=== PATIENT | female | born 1945 | race Caucasian/White ===

== ENCOUNTER 2017-06-01 17:10 | Inpatient (IN) | payer OTHER ==
--- NOTE | 2017-06-01 17:25 | EDPHY ---
H & P Time Seen by Provider: 06/01/17 17:25 Constitutional: Initial Vital Signs Temperature (C) 36.5 C 06/01/17 17:30 Heart Rate 97 06/01/17 17:30 Respiratory Rate 18 06/01/17 17:30 Blood Pressure 133/87 H 06/01/17 17:30 O2 Sat (%) 97 06/01/17 17:30 O2 Delivery Mode Room Air Allergies/Adverse Reactions: sulfamethoxazole [From Bactrim] Allergy (Intermediate, Verified 06/01/17 19:06) Hives trimethoprim [From Bactrim] Allergy (Intermediate, Verified 06/01/17 19:06) Hives Home Medications: Medication Instructions Recorded Beclomethasone Dipropionate [Qvar] 1 puffs PO BID 06/01/17 Esomeprazole Magnesium 40 mg PO DAILY 06/01/17 Triamterene/Hydrochlorothiazid 1 tab PO DAILY 06/01/17 [Triamterene-Hctz 75-50 mg Tab] Venlafaxine HCl [Venlafaxine HCl 1 cap PO DAILY 06/01/17 ER] Medical Decision Making - Diagnostics Imaging Results: Imaging Impressions Abdomen Ultrasound 06/01/17 17:31 Impression: 1. Hepatomegaly, with hepatic steatosis and/or hepatitis. 2. Chronic versus acute cholecystitis, with associated wall thickening and intraluminal stones and sludge. 3. Dilated common bile duct; however, no discernible common bile duct stone. Findings discussed with Emergency Department physician, Rene Hughes M.D., on June 01, 2017 at 1820. Imaging: Discussed imaging studies w/ call center trainer Radiologist ED Course/Re-evaluation: CHIEF COMPLAINT: Epigastric/RUQ pain HISTORY OF PRESENT ILLNESS: The patient is a 71 y/o female arriving with her family complaining of epigastric and RUQ pain and dysphagia for the last several weeks and progressively worsening. She has a history of esophageal strictures requiring dilation and a large hiatal hernia that she has been told she needs surgery for. She's had progressive epigastric and RUQ pain for several weeks that has occasionally resolved for a day or two, but became constant in the last 2 days. She describes moderate to severe epigastric tenderness in addition to esophageal pain. Her abdominal pain is associated with nausea and worse with movement, palpation, and belching. This pain does not feel like prior esophageal strictures. She does additionally have dysphagia and odynophagia similar to prior strictures. She has been unable to eat for the last 1-2 days. No history of abdominal surgeries. REVIEW OF SYSTEMS: A 10 point review of systems was performed and is negative with the exception of the elements mentioned in the history of present illness. PHYSICAL EXAM: HR, BP, O2 Sat, RR. Temp noted General Appearance: Alert, well hydrated, appropriate, and non-toxic appearing. Head: Atraumatic without scalp tenderness or obvious injury Eyes: Pupils equal, round, reactive to light and accommodation, EOMI, no trauma , no injection. Nose: Atraumatic, no rhinorrhea, clear. Throat: There is no erythema or exudates, no lesions, normal tonsils, mucus membranes moist. Neck: Supple, nontender, no lymphadenopathy. Respiratory: No retractions, no distress, no wheezes, and no accessory muscle use. Lungs are clear to auscultation bilaterally. Cardiovascular: Regular rate and rhythm, no murmurs, rubs, or gallops. Good capillary refill all extremities. Gastrointestinal: Abdomen is soft, RUQ and epigastric tenderness, non-distended , no masses, no rebound, no guarding, no peritoneal signs. Musculoskeletal: Normal active ROM of all extremities, atraumatic. Neurological: Alert, appropriate, and interactive. The patient has non-focal cranial nerves, motor, sensory, and cerebellar exam. Skin: No rashes, good turgor, no nodules on palpation. Past medical history: Esophageal strictures requiring dilation, hiatal hernia Past surgical history: No abdominal surgeries Family history: Noncontributory Social history: Family at bedside. Visiting from [place]. DIAGNOSTICS/PROCEDURES/CRITICAL CARE TIME: Abdominal US: acute cholecystitis The 12 lead EKG was interpreted by myself. Sinus rhythm rate 93. See hard copy and/or "tracemaster" electronic copy for interpretation. DIFFERENTIAL DIAGNOSIS: The differential diagnosis for the patient's abdominal pain included but was not limited to ovarian cyst, pelvic inflammatory disease, ovarian torsion, urinary tract infection, ectopic , cholecystitis, and appendicitis. MEDICAL DECISION MAKING: This is a 71 y/o female who presents with a several-week history of waxing and waning epigastric and RUQ pain worsening over the last couple days. She now has associated nausea and has been unable to eat. Also has odynophagia and dysphagia similar to prior esophageal strictures. She has moderate RUQ and epigastric tenderness on exam that is concerning for gallbladder etiology. Plan for IV, labs, and abdominal US. Patient declines pain medication. LFTs and lipase are elevated. US shows acute cholecystitis. Plan for admission, surgery consult. 1830: Consulted with Dr. Valenzuela, surgeon, in the ED. He will assess patient in the ED. - Data Points Laboratory Results: Laboratory Results 06/01/17 17:45 06/01/17 17:45 18 06/01/17 17:45 17:45 WBC 12.17 10^3/uL H 10^3/uL (3.80-9.50) RBC 4.90 10^6/uL 10^6/uL (4.18-5.33) Hgb 14.7 g/dL g/dL (12.6-16.3) Hct 43.1 % % (38.0-47.0) MCV 88.0 fL fL (81.5-99.8) MCH 30.0 pg pg (27.9-34.1) MCHC 34.1 g/dL g/dL (32.4-36.7) RDW 12.6 % % (11.5-15.2) Plt Count 311 10^3/uL 10^3/uL (150-400) MPV 9.9 fL fL (8.7-11.7) Neut % (Auto) 78.3 % H % (39.3-74.2) Lymph % (Auto) 10.4 % L % (15.0-45.0) [place] % (Auto) 8.6 % % (4.5-13.0) Eos % (Auto) 1.4 % % (0.6-7.6) Baso % (Auto) 0.4 % % (0.3-1.7) Nucleat RBC Rel Count 0.0 % % (0.0-0.2) Absolute Neuts (auto) 9.52 10^3/uL H 10^3/uL (1.70-6.50) Absolute Lymphs (auto) 1.27 10^3/uL 10^3/uL (1.00-3.00) Absolute Monos (auto) 1.05 10^3/uL H 10^3/uL (0.30-0.80) Absolute Eos (auto) 0.17 10^3/uL 10^3/uL (0.03-0.40) Absolute Basos (auto) 0.05 10^3/uL 10^3/uL (0.02-0.10) Absolute Nucleated RBC 0.00 10^3/uL 10^3/uL (0-0.01) Immature Gran % 0.9 % % (0.0-1.1) Immature Gran # 0.11 10^3/uL H 10^3/uL (0.00-0.10) Sodium 133 mEq/L L mEq/L (135-145) Potassium 4.0 mEq/L mEq/L (3.5-5.2) Chloride 94 mEq/L L mEq/L (97-110) Carbon Dioxide 22 mEq/l mEq/l (22-31) Anion Gap 17 mEq/L H mEq/L (8-16) BUN 15 mg/dL mg/dL (7-23) Creatinine 1.0 mg/dL mg/dL (0.6-1.0) Estimated GFR 55 Glucose 133 mg/dL H mg/dL (70-100) Calcium 9.7 mg/dL mg/dL (8.5-10.4) Total Bilirubin 7.5 mg/dL H mg/dL (0.1-1.4) Conjugated Bilirubin 6.5 mg/dL H mg/dL (0.0-0.5) Unconjugated Bilirubin 1.0 mg/dL mg/dL (0.0-1.1) AST 572 IU/L H IU/L (14-46) ALT 839 IU/L H IU/L (9-52) Alkaline Phosphatase 277 IU/L H IU/L (38-126) Total Protein 7.5 g/dL g/dL (6.3-8.2) Albumin 4.2 g/dL g/dL (3.5-5.0) Lipase 2441 IU/L H IU/L (23-300) Medications Given: Discontinued Medications Sodium Chloride (Ns) 1,000 mls @ 0 mls/hr IV EDNOW ONE; Wide Open PRN Reason: Protocol Stop: 06/01/17 17:32 Last Admin: 06/01/17 17:50 Dose: 1,000 mls Departure - Departure Disposition: [facility] Inpatient Acute Clinical Impression: Acute cholecystitis Condition: Fair Report Scribed for: Rene Hughes Report Scribed by: Yenny Danielson Date of Report: 06/01/17 Time of Report: 18:38
[2017-06-01] MEDS ORDERED: NS 1,000 ML IV ONE (17:31)
--- NOTE | 2017-06-01 17:38 | CPEKG ---
Heart Rate: 93 RR Interval: 645 P-R Interval: 140 QRSD Interval: 78 QT Interval: 364 QTC Interval: 453 P Dresden: 48 QRS Dresden: 42 T Wave Dresden: 14 EKG Severity - NORMAL ECG - EKG Impression: SINUS RHYTHM Electronically Signed By: Rene Hughes 01-Jun-2017 19:58:45
[2017-06-01 18:01] LABS: PLATELET COUNT 311 10^3/uL (150-400)
[2017-06-01] MEDS: HYDROmorphONE/DILAUDID 1 MG/ML INJ IVP PRN ×2 (20:18→22:20)
[2017-06-01] MEDS ORDERED: ONDANSETRON DISINTEGRATING 4 MG TAB PO PRN (21:24)
[2017-06-01] MEDS ORDERED: ONDANSETRON 4 MG/2 ML VIAL IVP PRN (21:24)
[2017-06-01] MEDS ORDERED: NS 1,000 ML IV SCH (21:30)
--- NOTE | 2017-06-01 21:50 | GHP ---
[f rep st] HISTORY AND PHYSICAL DATE OF ADMISSION: 06/01/2017 CHIEF COMPLAINT: Abdominal pain. HISTORY OF PRESENT ILLNESS: A 71-year-old female with a history of esophageal stricture, status post dilation. Presents with 3 weeks of abdominal pain. Described as epigastric in nature. Worse with eating. Associated with a small amount of nausea, vomiting. She did not seek treatment immediately as she attributed this to her hiatal hernia. She is from [place], [place], visiting her daughter. At her daughter's insistence she presented to the emergency department. PAST MEDICAL/PAST SURGICAL HISTORY: 1. Hiatal hernia. 2. GERD. 3. Hypertension. 4. Esophageal stricture. 5. Anxiety. 6. Retinal surgery. 7. Cataract surgery. 8. Carpal tunnel release. MEDICATIONS: Please see medication reconciliation. ALLERGIES: Bactrim. FAMILY HISTORY: Reviewed and noncontributory. SOCIAL HISTORY: She is visiting from [place]. She has not drank for the last 2 weeks; however, salome usually has one alcoholic drink a night. REVIEW OF SYSTEMS: A 10-point review of systems is conducted and is negative except per HPI. PHYSICAL EXAM: VITAL SIGNS: Blood pressure 120/70, heart rate 83, respiration rate 16, saturating a t initially at 89% on room air. Temperature 36.7. GENERAL: Ms. Stroud is a pleasant female who appea rs tired, but in no acute distress. HEENT: Shows her to be normocephalic, atraumatic. CARDIOVASCUL AR: Regular rate and rhythm. No murmurs, rubs, or gallops. PULMONARY: Lungs clear to auscultation bilaterally. ABDOMEN: Soft. She has no rebound or guarding. She has normal bowel sounds. She carmona s epigastric tenderness to palpation. She has no Collins sign. SKIN: Shows no rash. : No Cortes. NEUROLOGIC: Shows her to be alert and oriented x3. She is moving all extremities. PSYCHIATRIC: Exam shows normal mood and affect. LABORATORY DATA: White count is 12.1, sodium is 133, bicarb 22, total bilirubin 7.5, AST is 572. AL T is 839, alkaline phosphatase is 277, lipase is 2441. DATA: 1. I discussed this with Dr. Hughes in the ED. We will admit to med/surg. 2. I reviewed her ultrasound. This shows chronic versus acute cholecystitis, with stones and a dila sunny common bile duct, without clear common bile duct stone seen. 3. ECG, which I personally reviewed and interpreted, shows sinus rhythm. There is nothing acutely i schemic. IMPRESSION AND PLAN: 1. Cholecystitis, possible common bile duct stone, pancreatitis: GI has been consulted, planned ERC P tomorrow. Dr. Brady has been consulted by the ED, but requested that we admit. I think she wi ll need an ERCP with possible stone extraction pending her symptoms, as well as LFTs tomorrow. Will recheck her lipase to see if her pancreatitis resolves. She will likely need a cholecystectomy at so me point, General Surgery will need to be consulted when she is stabilized from her initial procedure s, and resolved her pancreatitis. 2. Gastroesophageal reflux disease: Will continue her esomeprazole. 3. Anxiety: Continue her Effexor. 4. Hypertension: Hold her medications at this time. 5. We will keep her n.p.o., give her IV fluids and IV pain control. /[id number]/MODL
[2017-06-01] MEDS: ERTAPENEM 1 GM VIAL IV SCH (22:18)
[2017-06-02] MEDS: ACETAMINOPHEN 325 MG TAB PO PRN ×2 (05:01→20:58)
[2017-06-02] MEDS: HYDROmorphONE/DILAUDID 1 MG/ML INJ IVP PRN ×3 (05:01→20:59)
[2017-06-02 05:21] LABS: PLATELET COUNT 244 10^3/uL (150-400)
[2017-06-02] MEDS: PANTOPRAZOLE SODIUM 40 MG TAB PO SCH (08:21)
[2017-06-02] MEDS: VENLAFAXINE XR 37.5 MG CAP PO SCH (08:21)
[2017-06-02] MEDS: ERTAPENEM 1 GM VIAL IV SCH (08:21)
[2017-06-02] MEDS ORDERED: GLUCAGON HCL 1 MG VIAL ONE (08:48)
[2017-06-02] MEDS ORDERED: IOTHALAMATE MEG (CONRAY) 50 ML VIAL IV ONE (08:49)
--- NOTE | 2017-06-02 09:12 | GCON ---
[f rep st] CONSULTATION CHIEF COMPLAINT: Cholelithiasis, abnormal liver function tests, possible choledocholithiasis. HISTORY OF PRESENT ILLNESS: I have been asked to see this 71-year-old woman in consultation by Dr. Markie hare for abnormal liver function tests, with gallstones and dilated duct. The patient does have a history of gastroesophageal reflux disease. She reportedly has a prior history of esophageal strictu re, and has undergone upper endoscopy in the past. She does have a hiatal hernia. Over the last 3 w eeks, she has been in intermittent retrosternal discomfort and chest pain. The pain does radiate to her back. Symptoms are worse with eating. She initially attributed this to her hiatal hernia. The pain became worse and she did go to the emergency room for further evaluation. She was found to have a total bilirubin of 7.5 with an ALT of 839 and AST of 572. Alk phos was 277. Her lipase was also elevated at 2441. She had a slightly elevated white count of 12.17. Abdominal ultrasound showed hep atomegaly with steatosis, chronic versus acute cholecystitis, with associated wall thickening and int raluminal stones and sludge. She also had a dilated common bile duct up to 9 mm. Asked to see patie nt for further evaluation. PAST MEDICAL HISTORY: GERD, hypertension, anxiety/depression. PAST SURGICAL HISTORY: Retinal surgery, cataract surgery, carpal tunnel release. ALLERGIES: Bactrim. FAMILY HISTORY: Negative as it pertains to chief complaint. SOCIAL HISTORY: She is from [place], [place]. Only drinks socially, is a nonsmoker. MEDICATIONS: Prior to admission included venlafaxine, which is Effexor, I think, 1 cap daily; Nexium 40 mg daily; triamterene-hydrochlorothiazide 1 tab daily; and Qvar 1 puff b.i.d. REVIEW OF SYSTEMS: Negative for 10 systems other than mentioned in HPI. PHYSICAL EXAM: VITAL SIGNS: 124/74, respiratory rate is 16, heart rate 75, 94% sat on room air, 36. 8 temp. GENERAL: Very pleasant woman in no acute distress. HEENT: Normocephalic, atraumatic. EOM I. NECK: Supple. No cervical adenopathy. No thyromegaly. Mucous membranes moist. LUNGS: Clear. CARDIAC: Normal S1, S2 without murmur. ABDOMEN: Soft, benign. Normal bowel sounds. Slight tend erness to palpation in the epigastrium. EXTREMITIES: Without clubbing, cyanosis, edema. NEUROLOGIC : Grossly nonfocal. SKIN: Warm, dry, intact. PSYCH: Alert and oriented x3 with normal affect. LABORATORY DATA: As above. IMPRESSION: 71-year-old woman with clinical history consistent with cholelithiasis or chronic cholec ystitis and choledocholithiasis. RECOMMENDATIONS: The patient is n.p.o. Patient is planned for cholecystectomy at some point during this admission. We will plan on pre-surgical ERCP for sphincterotomy and stone extraction. We will continue on IV hydration and analgesia. Will follow with you. /[id number]/MODL
[2017-06-02] MEDS ORDERED: LR 1,000 ML IV ONE (09:17)
--- NOTE | 2017-06-02 09:18 | ASMTCMCOM ---
CM Note CM Note Notes: Patient admitted with acute cholecystitis. She is scheduled to have an ERCP today and surgical consult when stable. Patient is in town from [place], visiting her daughter. She is normally independent and lives with her . No therapies have been ordered; I anticipate she will discharge home with her daughter when stable. Case Management will follow. Date Signed: 06/02/2017 09:17 AM Electronically Signed By:Shandra Garvey RN
[2017-06-02] MEDS ORDERED: PROPOFOL 200 MG/20 ML VIAL ONE (09:32)
[2017-06-02] MEDS ORDERED: fentaNYL 100 MCG/2 ML INJ ONE (09:32)
[2017-06-02] MEDS ORDERED: PROMETHAZINE HCL 25 MG/ML INJ IVP PRN (09:59)
[2017-06-02] MEDS ORDERED: fentaNYL 100 MCG/2 ML INJ IVP PRN (09:59)
[2017-06-02] MEDS ORDERED: LR 500 ML IV PRN (09:59)
[2017-06-02] MEDS ORDERED: DEXAMETHASONE 4 MG/ML VIAL IVP PRN (09:59)
[2017-06-02] MEDS ORDERED: ALBUTEROL 3 ML DEYVIAL IH PRN (09:59)
[2017-06-02] MEDS ORDERED: NALOXONE HCL 0.4 MG/ML INJ IVP PRN (09:59)
[2017-06-02] MEDS ORDERED: ONDANSETRON 4 MG/2 ML VIAL IVP PRN (09:59)
--- NOTE | 2017-06-02 09:59 | PDANEPAE ---
ANE Past Medical History - Pulmonary History Hx Oxygen in Use at Home: No Hx Sleep Apnea: No Sleep Apnea Screening Result - Last Documented: Negative - Endocrine History Hx Diabetes: No ANE Review of Systems Review of Systems: ANE Patient History - Allergies Allergies/Adverse Reactions: sulfamethoxazole [From Bactrim] Allergy (Intermediate, Verified 06/01/17 19:06) Hives trimethoprim [From Bactrim] Allergy (Intermediate, Verified 06/01/17 19:06) Hives - Home Medications Home Medications: Beclomethasone Dipropionate [Qvar] 1 puffs PO BID 06/01/17 [Last Taken 05/29/17] Esomeprazole Magnesium 40 mg PO DAILY 06/01/17 [Last Taken 06/01/17] Triamterene/Hydrochlorothiazid [Triamterene-Hctz 75-50 mg Tab] 1 tab PO DAILY [Last Taken 06/01/17] Venlafaxine HCl [Venlafaxine HCl ER] 1 cap PO DAILY 06/01/17 [Last Taken ] - NPO status NPO Since - Liquids (Date): 06/02/17 NPO Since - Liquids (Time): 00:00 NPO Since - Solids (Date): 06/02/17 NPO Since - Solids (Time): 00:00 - Smoking Hx Smoking Status: Former smoker ANE Labs/Vital Signs - Labs Result Diagrams: 06/02/17 04:36 06/02/17 04:36 - Vital Signs Blood Pressure: 130/71 Heart Rate: 73 Respiratory Rate: 16 O2 Sat (%): 93 Height: 154 cm Weight: 75.6 kg ANE Physical Exam - Airway Neck exam: FROM Mallampati Score: Class 1 Mouth exam: normal dental/mouth exam - Pulmonary Pulmonary: no respiratory distress, no rales or rhonchi, clear to auscultation - Cardiovascular Cardiovascular: regular rate and rhythym, no murmur, rub, or gallop - ASA Status ASA Status: III ANE Anesthesia Plan Anesthesia Plan: general endotracheal anesthesia
--- NOTE | 2017-06-02 10:01 | PDMN ---
Medical Necessity Medical necessity: M565 gallbladder or bile duct inflammation or stone A-2 days : evidence of common bile duct disease , elevated bili , > 2 mg/ml, elevated liver function tests AST,ALT > 1.5 upper limit, further eval and monitoring and tx needed . pt is NPO with IV fluids, antiemetics, pain meds, abx,
[2017-06-02] MEDS ORDERED: SUGAMMADEX SODIUM 200 MG/2 ML VIAL IVP ONE (10:03)
[2017-06-02] MEDS ORDERED: ROCURONIUM 50 MG/5 ML VIAL ONE (10:03)
[2017-06-02] MEDS ORDERED: ONDANSETRON 4 MG/2 ML VIAL ONE (10:03)
[2017-06-02] MEDS ORDERED: LIDOCAINE 2% 5 ML SDV ONE (10:03)
--- NOTE | 2017-06-02 10:25 | GIREPORT ---
[facility] Surgical Services - Endoscopy Department Patient Name: Tabatha Stroud Procedure Date: 06/02/2017 9:38 AM Patient Type: Inpatient Attending MD/ ER Physician: Brady Rdz MD Procedure: ERCP Indications: Evaluation and possible treatment of bile duct stone(s), Suspected bile duct stone(s), Abnormal liver function test, Abdominal pain of suspected aidee iary origin Providers: Brady Rdz MD Medicines: See the Anesthesia note for documentation of the administered medicatio ns Complications: No immediate complications. Description of Procedure: After obtaining informed consent, the scope was passed under direct vis ion. Throughout the procedure, the patient's blood pressure, pulse, and oxyg en saturations were monitored continuously. The was introduced through the mouth, and advanced to the duodenum and used to inject contrast into th e bile duct. The ERCP was accomplished without difficulty. The patient tolerated the procedure well. Findings: The esophagus was successfully intubated under direct vision. The scope was advanced to a normal major papilla in the descending duodenum without detailed examination of the pharynx, larynx and associated structures, and upper GI tract. The upper GI tract was grossly normal. A long 0.035 inc h Soft Jagwire was passed into the biliary tree. The bile duct was then d eeply cannulated over the guidewire. Contrast was injected. I personally interpreted the bile duct images. Contrast extended to the bifurcation. The entire opacified area was normal. No obvious filling defects. An 8 - 10 mm biliary sphincterotomy was made with a traction (standard) sphincteroto me using ERBE electrocautery. There was no post-sphincterotomy bleeding. T o size the object(s), the biliary tree was swept with a 12 mm balloon sta rting at the bifurcation. Nothing was found. Good bile flow. Estimated Blood Loss: Estimated blood loss: none. Post Op Diagnosis: - A biliary sphincterotomy was performed. - The biliary tree was swept and nothing was found. Recommendation: - Clear liquid diet. - Refer to a surgeon for cholecystecgtomy. - Thank you for allowing me to participate in the care of your patient. Attending Participation: I personally performed the entire procedure. Brady Rdz MD Brady Rdz MD 06/02/2017 10:24:35 AM This report has been signed electronicallyStevdayana Rdz MD Number of Addenda: 0 Note Initiated On: 06/02/2017 9:38 AM [email or web address]
[2017-06-02] MEDS: BECLOMETHASONE QVAR 40 MDI IH SCH ×2 (10:34→20:29)
--- NOTE | 2017-06-02 10:37 | POSTANESTH ---
Post Anesthetic Evaluation Cardiovascular Status: Normal, Stable, Similar to Pre-Op Cond Respiratory Status: Normal, Stable, Similar to Pre-op Cond. Level of Consciousness/Mental Status: Mildly Sleepy, Arousable Pain Control: Adequate, Prn Tx Ordered Nausea/Vomiting Control: Adequate, Prn Tx Ordered Complications Possibly Related to Anesthesia: None Noted
[2017-06-02] MEDS: D5W 1/2 NS W/ 20 KCl/L 1,000 ML IV SCH (14:18)
--- NOTE | 2017-06-02 15:19 | HOSPPROG ---
Hospitalist Progress Note Assessment/Plan: * acute cholecystitis * Surgery will see today * May need to rest 1 more day before surgery * Continue antibiotics for now * biliary obstruction * Status post ERCP * Monitor LFTs * pancreatitis * Bowel rest for now * history esophageal stricture * GERD Subjective: Complaining of little bit of epigastric and esophageal pain. Objective: Vital Signs Temp Pulse Resp BP Pulse Ox 36.8 C 75 18 126/64 H 94 06/02/17 13:40 06/02/17 13:40 06/02/17 13:40 06/02/17 13:40 06/02/17 13:40 Laboratory Results 06/02/17 04:36 06/02/17 04:36 06/01/17 06/02/17 06/03/17 05:59 05:59 05:59 Intake Total 1700 865 Output Total 0 Balance 1700 865 Discussed with surgery - Physical Exam Constitutional: no apparent distress, appears nourished, not in pain Eyes: anicteric sclera, EOMI Ears, Nose, Mouth, Throat: moist mucous membranes, hearing normal Cardiovascular: regular rate and rhythym Respiratory: no respiratory distress Gastrointestinal: normoactive bowel sounds, tenderness (Mild epigastric and right upper quadrant tenderness) Skin: warm Neurologic: AAOx3 Psychiatric: interacting appropriately, not anxious, not encephalopathic, thought process linear ICD10 Worksheet Patient Problems: Problems Problem Status Onset Acute cholecystitis Acute
--- NOTE | 2017-06-02 22:30 | PDCONSULT ---
Plastic Surgery Manager Note: Tabatha is a 71 y/o female admitted yesterday with a 3 weeks history of worsening abdominal pain, nausea and emesis. She was found to have pancreatitis and gallstones and was admitted to the Hospitalist service with GI consulting. She underwent ERCP/sphincterotomy this morning by Dr. Rdz with findings of a mildly dialated CBD, but no retained stones. Dr. Gilman requested surgical consult. PMH: hiatal hernia/esophageal stricture/GERD/HTN/anxiety surgery: cataracts, carpal tunnel all: Bactrim reports drinking alcohol daily 1-2 drinks/none past 2 weeks she is a non-smoker meds: Ertapenam/Effexor/hydromorphone SH: lives in [place]/here visiting her daughter ROS: denies prior attacks, jaundice, hemetemesis, melena, hematochezia PE: T 37.0 P 78 BP 110/80 O2sat 96% 1.5 lpm O2 pleasant woman in NAD mild scleral icterus/no adenopathy lungs: clear to auscultation CVS: RRR abd: soft/no RUQ tenderness/mild midepigastric tenderness to deep palpation no hepatosplenomegaly or mass labs: lipase 1750 bili 6.3 (5.7 conj) AST 301 ALT 621 alk Phos 227 wbc 10.1 Hgb 13.4 plat 244 LORETA: multiple gallstones with 6 mm wall thickening/CBD 9 mm/hepatic steatosis Imp:1. pancreatitis most likely etiology would be cholelithiasis/though other causes or contributing factors not excluded 2. gallstones with chronic cholecystitis Rec: we discussed the pathophysiology of pancreatitis and the hepatobiliary anatomy and physiology in detail with the aide of anatomic drawings. I recommended lap cholecystectomy during this hospitalization after her pancreatitis resolves further. I have ordered a lipase in the AM along with repeat LFT's. If she shows evidence of worsening pancreatitis I would consider a CT of the pancreas to further assess. I would continue NPO with IV fluids until pancreatitis improves.
[2017-06-03] MEDS: D5W 1/2 NS W/ 20 KCl/L 1,000 ML IV SCH ×2 (05:16→22:16)
[2017-06-03 05:30] LABS: PLATELET COUNT 222 10^3/uL (150-400)
[2017-06-03] MEDS: BECLOMETHASONE QVAR 40 MDI IH SCH ×2 (08:20→20:43)
[2017-06-03] MEDS: ERTAPENEM 1 GM VIAL IV SCH (09:27)
[2017-06-03] MEDS: PANTOPRAZOLE SODIUM 40 MG TAB PO SCH (09:28)
[2017-06-03] MEDS: VENLAFAXINE XR 37.5 MG CAP PO SCH (09:29)
--- NOTE | 2017-06-03 09:59 | HOSPPROG ---
Hospitalist Progress Note Assessment/Plan: * acute cholecystitis * Surgery today * Continue antibiotics for now * biliary obstruction * Status post ERCP * Improving LFTs * pancreatitis * Bowel rest for now * Improving * history esophageal stricture * GERD Subjective: Pain seems to be better Objective: Vital Signs Temp Pulse Resp BP Pulse Ox 36.9 C 74 18 132/64 H 94 06/03/17 08:04 06/03/17 08:20 06/03/17 08:20 06/03/17 08:04 06/03/17 08:20 Laboratory Results 06/03/17 04:39 06/03/17 04:39 06/02/17 06/03/17 06/04/17 05:59 05:59 05:59 Intake Total 1700 1866 Output Total 0 Balance 1700 1866 - Physical Exam Constitutional: no apparent distress, appears nourished, not in pain Eyes: anicteric sclera, EOMI Ears, Nose, Mouth, Throat: moist mucous membranes, hearing normal Cardiovascular: regular rate and rhythym, no murmur, rub, or gallop Respiratory: no respiratory distress, no rales or rhonchi, clear to auscultation Gastrointestinal: normoactive bowel sounds, soft, non-tender abdomen, tenderness (Mild epigastric) Skin: warm Neurologic: AAOx3 Psychiatric: interacting appropriately, not anxious, not encephalopathic, thought process linear ICD10 Worksheet Patient Problems: Problems Problem Status Onset Acute cholecystitis Acute
--- NOTE | 2017-06-03 10:46 | SOAPPROG ---
LUCIUS Progress Note Assessment/Plan: Assessment/Plan - 71-year-old female with gallstone pancreatitis status post ERCP Pain appears better today, lipase downtrending in is almost normal. Plan for lap chris today, risks benefits and alternatives discussed. Subjective: Feels better, still has some epigastric tenderness Objective: Vital Signs Temp Pulse Resp BP Pulse Ox 36.9 C 74 18 132/64 H 94 06/03/17 08:04 06/03/17 08:20 06/03/17 08:20 06/03/17 08:04 06/03/17 08:20 Laboratory Results 06/03/17 04:39 06/03/17 04:39 06/02/17 06/03/17 06/04/17 05:59 05:59 05:59 Intake Total 1700 1866 Output Total 0 Balance 1700 1866 ICD10 Worksheet Patient Problems: Problems Problem Status Onset Acute cholecystitis Acute
--- NOTE | 2017-06-03 12:31 | SOAPPROG ---
SOAP Progress Note Assessment/Plan: Assessment: s/ ERCP with sphincterotomy. No stones in CBD LFT's improved. No abdominal pain. Plan: Plan for Cholecystectomy later today. Will sign off, please call with further questions. 06/03/17 12:23 Subjective: CC: Cholelithiasis and abnormal LFTs Patient without abdominal pain Objective: Vital Signs Temp Pulse Resp BP Pulse Ox 36.9 C 74 18 132/64 H 94 06/03/17 08:04 06/03/17 08:20 06/03/17 08:20 06/03/17 08:04 06/03/17 08:20 Laboratory Results 06/03/17 04:39 06/03/17 04:39 06/02/17 06/03/17 06/04/17 05:59 05:59 05:59 Intake Total 1700 1866 Output Total 0 Balance 1700 1866 Generic Name Dose Route Start Last Admin Trade Name Freq PRN Reason Stop Dose Admin Acetaminophen 650 mg 06/01/17 21:24 06/02/17 20:58 Tylenol PO 11/28/17 21:23 650 mg Q4HRS PRN Administration Pain, Mild/Fever, Can Take PO Beclomethasone Dipropionate 1 puffs 06/02/17 09:00 06/03/17 08:20 Qvar 40 IH 11/29/17 08:59 Not Given BID FERNANDEZ Ertapenem 1 gm 06/01/17 21:30 06/03/17 09:27 Invanz IV 07/01/17 21:29 1 gm DAILY FERNANDEZ Administration Protocol Hydromorphone HCl 0.4 - 0.6 mg 06/01/17 20:10 06/02/17 20:59 Dilaudid IVP 06/11/17 20:09 0.6 mg Q2HRS PRN Administration Pain, Severe Unable to Take PO Potassium Chloride/Dextrose/Sod Cl 1,000 mls @ 75 mls/hr 06/02/17 14:00 06/03 05:16 D5w 1/2 Ns W/ 20 Kcl/L IV 11/29/17 13:59 1,000 mls CONT FERNANDEZ Administration Ondansetron HCl 4 mg 06/01/17 21:24 06/01/17 22:19 Zofran IVP 11/28/17 21:23 4 mg Q4HRS PRN Administration Nausea/Vomiting, Can't Take PO Ondansetron HCl 4 mg 06/01/17 21:24 Zofran Odt PO 11/28/17 21:23 Q4HRS PRN Nausea/Vomiting, Use 1st Pantoprazole Sodium 40 mg 06/02/17 09:00 06/03/17 09:28 Protonix PO 11/29/17 08:59 40 mg DAILY FERNANDEZ Administration Venlafaxine HCl 37.5 mg 06/02/17 09:00 06/03/17 09:29 Effexor Xr PO 11/29/17 08:59 Not Given DAILY FERNANDEZ Discontinued Medications Generic Name Dose Route Start Last Admin Trade Name Freq PRN Reason Stop Dose Admin Albuterol 3 ml 06/02/17 09:59 Proventil Neb IH 06/02/17 10:59 Q10M PRN PACU, Wheezing Dexamethasone 4 mg 06/02/17 09:59 Decadron Injection IVP 06/02/17 10:59 ONCE PRN PACU, Nausea/Vomiting Fentanyl Confirm 06/02/17 09:32 Sublimaze Administered 06/02/17 09:33 Dose 100 mcg .ROUTE .STK-MED ONE Fentanyl 25 - 100 mcg 06/02/17 09:59 Sublimaze IVP 06/02/17 10:59 Q5M PRN PACU, IMMEDIATE Pain control Glucagon Confirm 06/02/17 08:48 Glucagon Administered 06/02/17 08:49 Dose 1 mg .ROUTE .STK-MED ONE Sodium Chloride 1,000 mls @ 0 mls/hr 06/01/17 17:31 06/01/17 17:50 Ns IV 06/01/17 17:32 1,000 mls EDNOW ONE Administration Protocol Wide Open Sodium Chloride 1,000 mls @ 75 mls/hr 06/01/17 21:30 06/01/17 22:13 Ns IV 11/28/17 21:29 1,000 mls CONT FERNANDEZ Administration Lactated Ringer's 1,000 mls @ 0 mls/hr 06/02/17 09:17 06/02/17 09:20 Lr IV 06/02/17 09:18 1,000 mls ONCE ONE Administration Per Protocol Lactated Ringer's 500 mls @ 0 mls/hr 06/02/17 09:59 Lr IV 06/02/17 10:59 PRN PRN PACU, Nausea/Vomiting Post-Op Wide Open Iothalamate Meglumine Confirm 06/02/17 08:49 [place]ray Administered 06/02/17 08:50 Dose 50 ml IV .STK-MED ONE Lidocaine HCl Confirm 06/02/17 10:03 Xylocaine-Mpf 2% Vial Administered 06/02/17 10:04 Dose 5 ml .ROUTE .STK-MED ONE Morphine Sulfate 1 - 4 mg 06/02/17 09:59 Morphine IVP 06/02/17 10:59 Q10M PRN PACU, PAIN Naloxone HCl 0.1 mg 06/02/17 09:59 Narcan IVP 06/02/17 10:59 Q2M PRN PACU Resp Rate <10/min Ondansetron HCl 2 - 4 mg 06/02/17 09:59 Zofran IVP 06/02/17 10:59 Q10M PRN PACU, Nausea/Vomiting Ondansetron HCl Confirm 06/02/17 10:03 Zofran Administered 06/02/17 10:04 Dose 4 mg .ROUTE .STK-MED ONE Promethazine HCl 6.25 - 12.5 mg 06/02/17 09:59 Phenergan IVP 06/02/17 10:59 Q5M PRN PACUNausea/Vomiting, Unable PO Propofol Confirm 06/02/17 09:32 Diprivan Administered 06/02/17 09:33 Dose 200 mg .ROUTE .STK-MED ONE Rocuronium [place] Confirm 06/02/17 10:03 Zemuron Administered 06/02/17 10:04 Dose 50 mg .ROUTE .STK-MED ONE Sugammadex Sodium Confirm 06/02/17 10:03 Bridion Administered 06/02/17 10:04 Dose 200 mg IVP .STK-MED ONE Physical Exam - Physical Exam General Appearance: alert, no apparent distress, mild distress Respiratory: chest non-tender, lungs clear, normal breath sounds Abdomen: normal bowel sounds, non-tender, soft Skin: normal color Neuro/Psych: alert, normal mood/affect, oriented x 3 ICD10 Worksheet Patient Problems: Problems Problem Status Onset Acute cholecystitis Acute
[2017-06-03] MEDS: ACETAMINOPHEN 325 MG TAB PO PRN (12:33)
[2017-06-03] MEDS ORDERED: ceFAZolin 2 GM/SWFI 2 GM/20 ML SYR IVP ONE (16:36)
[2017-06-03] MEDS ORDERED: LR 1,000 ML IV ONE (18:10)
--- NOTE | 2017-06-03 18:27 | PDHPUP ---
History & Physical Update H&P update statement: This history and physical update is based on an assessment of the patient which was completed after admission or registration (within 24 hours), but prior to the surgery/procedure. H&P update: H&P reviewed & patient examined, no change in patient's condition since H&P completed
--- NOTE | 2017-06-03 18:47 | PDANEPAE ---
ANE History of Present Illness 71 yo for lap chris ANAYA Past Medical History - Pulmonary History Hx Oxygen in Use at Home: No Hx Sleep Apnea: No Sleep Apnea Screening Result - Last Documented: Negative - Endocrine History Hx Diabetes: No ANE Review of Systems Review of Systems: - Exercise capacity METS (RN): 4 METS ANE Patient History - Allergies Allergies/Adverse Reactions: sulfamethoxazole [From Bactrim] Allergy (Intermediate, Verified 06/01/17 19:06) Hives trimethoprim [From Bactrim] Allergy (Intermediate, Verified 06/01/17 19:06) Hives - Home Medications Home Medications: Beclomethasone Dipropionate [Qvar] 1 puffs PO BID 06/01/17 [Last Taken 05/29/17] Esomeprazole Magnesium 40 mg PO DAILY 06/01/17 [Last Taken 06/01/17] Triamterene/Hydrochlorothiazid [Triamterene-Hctz 75-50 mg Tab] 1 tab PO DAILY [Last Taken 06/01/17] Venlafaxine HCl [Venlafaxine HCl ER] 1 cap PO DAILY 06/01/17 [Last Taken ] - NPO status NPO Status: no food or drink >8 hours NPO Since - Liquids (Date): 06/01/17 NPO Since - Liquids (Time): 00:00 NPO Since - Solids (Date): 06/01/17 NPO Since - Solids (Time): 00:00 - Smoking Hx Smoking Status: Former smoker ANE Labs/Vital Signs - Labs Result Diagrams: 06/03/17 04:39 06/03/17 04:39 - Vital Signs Blood Pressure: 146/69 Heart Rate: 75 Respiratory Rate: 18 O2 Sat (%): 95 Height: 5 ft 0.63 in Weight: 75.6 kg ANE Physical Exam - Airway Neck exam: FROM Mallampati Score: Class 2 Mouth exam: normal dental/mouth exam - Pulmonary Pulmonary: no respiratory distress - Cardiovascular Cardiovascular: regular rate and rhythym - ASA Status ASA Status: II ANE Anesthesia Plan Anesthesia Plan: general endotracheal anesthesia
[2017-06-03] MEDS ORDERED: fentaNYL 100 MCG/2 ML INJ ONE ×3 (19:05→20:41)
[2017-06-03] MEDS ORDERED: PROPOFOL/EMULSION 500 MG/50 ML BOTTLE IV ONE (19:05)
[2017-06-03] MEDS ORDERED: METOCLOPRAMIDE 10 MG/2 ML VIAL ONE (19:07)
[2017-06-03] MEDS ORDERED: DEXAMETHASONE 4 MG/ML VIAL ONE (19:07)
[2017-06-03] MEDS ORDERED: ROCURONIUM 50 MG/5 ML VIAL ONE ×2 (19:07→21:22)
[2017-06-03] MEDS ORDERED: ONDANSETRON 4 MG/2 ML VIAL ONE (19:07)
[2017-06-03] MEDS ORDERED: BUPIVACAINE 0.25% 30 ML SDV ONE (19:17)
[2017-06-03] MEDS ORDERED: KETOROLAC 30 MG/1 ML SDV ONE (20:15)
[2017-06-03] MEDS ORDERED: ONDANSETRON 4 MG/2 ML VIAL IVP PRN (20:29)
[2017-06-03] MEDS ORDERED: fentaNYL 100 MCG/2 ML INJ IVP PRN (20:29)
[2017-06-03] MEDS ORDERED: NALOXONE HCL 0.4 MG/ML INJ IVP PRN (20:29)
[2017-06-03] MEDS ORDERED: HYDROmorphONE/DILAUDID 1 MG/ML INJ IVP PRN (20:29)
--- NOTE | 2017-06-03 21:10 | POSTANESTH ---
Post Anesthetic Evaluation Cardiovascular Status: Tx Over/Under Hydration Respiratory Status: Tx Decrease in SpO2 Level of Consciousness/Mental Status: Mildly Sleepy, Arousable Pain Control: Adequate, Prn Tx Ordered Nausea/Vomiting Control: Adequate, Prn Tx Ordered Complications Possibly Related to Anesthesia: None Noted
--- NOTE | 2017-06-03 21:45 | GOP ---
[f rep st] OPERATIVE REPORT DATE OF OPERATION: 06/03/2017 SURGEON: Livan Valero MD PREVOCATIONAL/REHABILITATION COUNSELOR: None. ANESTHESIA: General endotracheal. ANESTHESIOLOGIST: Moose Tran MD. PREOPERATIVE DIAGNOSIS: Gallstone pancreatitis. POSTOPERATIVE DIAGNOSIS: [id number] cholecystitis with gallstone pancreatitis. PROCEDURE PERFORMED: Laparoscopic cholecystectomy. FINDINGS: Very edematous inflamed, thick gallbladder wall. Cholecystectomy performed via a dome down approach. Cystic artery successfully ligated with hemoclips and Harmonic Scalpel. The junction of cystic duct and infundibulum successfully stapled. SPECIMENS: Gallbladder. ESTIMATED BLOOD LOSS: 100 cc. DESCRIPTION OF PROCEDURE: The patient was greeted in the preoperative suite. Once again, risks, benefits, and alternatives were discussed. Consent was signed. She was then brought back to the operative suite, placed on the OR table in supine position. After all anesthesia machines, including SCDs were on and functioning, World Health [employer] time-out was performed. After successful induction of general anesthesia, the patient's abdomen was prepped and draped in typical sterile fashion. She did receive antibiotics button facing machine operator to the operating room. After successful induction, her abdomen was prepped and draped in typical sterile fashion. I entered the abdomen via an infraumbilical cutdown through which the Veress needle was passed. I achieved pneumoperitoneum uneventfully. Through this, a 12 mm Visiport was passed. I inspected the viscera, found no other suspicious findings. Three additional trocars were placed. One subxiphoid, 2 in the right upper quadrant all under direct visualization. There was a dense layer of omentum to the wall of the gallbladder which were successfully taken down bluntly. The gallbladder was then retracted over the ledge of the liver. I commenced my dissection at the infundibulum of the gallbladder. But given its very edematous and bleeding nature, I turned my approach to a dome down approach. I successfully mobilized the gallbladder off the liver bed using the Harmonic Scalpel. Once I got down to the infundibulum I successfully identified the cystic artery and isolated it , ligated it distally with the Harmonic scalpel and proximally with a hemoclip. I then skeletonized the infundibulum and junction of the cystic duct. It was enlarged and full of stones. I was unable to successfully get a hemoclip around this. I chose to staple it off using a single fire of the Endo-SONJA blue load. I successfully ligated and amputated the gallbladder at the infundibulum cystic duct junction. It was then removed using an EndoCatch bag. Back-table examination of the gallbladder showed amputation at the level of the cystic duct and no other significant pathology. I irrigated the right upper quadrant and liver bed with 2 L sterile saline noting clear effluent in the suction canister. Hemostasis was noted to be good in the liver bed. I did use Janel as a secondary hemostatic agent. I then removed my ports and evacuated pneumoperitoneum. I closed both my subxiphoid and infraumbilical port sites using running Vicryl stitches noting excellent fascial reapproximation. Skin was closed with Monocryl over which Dermabond was placed. The patient was then extubated in the operative suite and taken to the PACU in satisfactory condition. DRAINS: None. COUNTS: All counts were reported as correct x2. /[id number]/MODL MTDD
[2017-06-03] MEDS: HYDROmorphONE/DILAUDID 1 MG/ML INJ IVP PRN (22:17)
--- NOTE | 2017-06-03 22:19 | POSTOPPROG ---
Post Op Note Date of Operation: 06/03/17 Surgeon: Livan Valero Anesthesiologist: Wil Anesthesia: GET(General Endotracheal) Pre-op Diagnosis: Gallstone pancreatitis Post-op Diagnosis: acute on chronic cholecystitis with gallstone pancreatitis Procedure: lap chris Findings: edematous wall, many stones, critical view Inf/Abcess present in the surg proc area at time of surgery?: No EBL: 50-100 Total fluids administered: 2000cc washout Specimen(s): GB
[2017-06-04] MEDS: HYDROmorphONE/DILAUDID 1 MG/ML INJ IVP PRN ×2 (04:37→09:19)
[2017-06-04] MEDS: BECLOMETHASONE QVAR 40 MDI IH SCH (09:02)
[2017-06-04] MEDS: VENLAFAXINE XR 37.5 MG CAP PO SCH (09:55)
[2017-06-04] MEDS: PANTOPRAZOLE SODIUM 40 MG TAB PO SCH (09:55)
[2017-06-04] MEDS ORDERED: HYDROCODONE/APAP 5/325 TAB PO PRN (10:05)
[2017-06-04] MEDS: ERTAPENEM 1 GM VIAL IV SCH (10:11)
--- NOTE | 2017-06-04 11:17 | PDHOMEO2F ---
Home Oxygen Face to Face Home Orders: I certify that a physician or a nurse practitioner or physician's talent assistant has had a [id number] encounter with this patient on the date of this order due to the diagnosis listed, which relates to the primary reason the patient requires home oxygen. Alternative treatments have been tried, or considered, and deemed ineffective. It is anticipated that supplemental oxygen will result in improvement with treatment. Home oxygen qualifying diagnosis: atelectasis, post op SpO2 on room air (%): 87 Frequency of home oxygen needed: continuous Home oxygen liters per minute: 2 Home oxygen delivery device: nasal cannula Concentrator: Yes E-tanks for mobility and back up: Yes If ordering portable O2, is the patient mobile in the home?: Yes I certify that, based on these findings, the home oxygen is medically necessary for this patient for the following length of time. Length of time home oxygen needed: 1 month
[2017-06-04 11:45] VITALS: BP 125/62; PULSE 80; RESP 16; TEMP 98.4; O2SAT 95
--- NOTE | 2017-06-04 13:01 | SOAPPROG ---
SOAP Progress Note Assessment/Plan: Assessment/Plan - s/p lap chris - doing well today, pain is as expected. - discussed lifting, bathing, eating precautions - patient wants to go back to [place] next week. OK by me. Needs to follow up with PCP following week 06/04/17 12:59 Subjective: having some pain but tolerating a diet. Objective: Vital Signs Temp Pulse Resp BP Pulse Ox 36.9 C 80 16 125/62 H 95 06/04/17 11:45 06/04/17 11:45 06/04/17 11:45 06/04/17 11:45 06/04/17 11:45 Laboratory Results 06/03/17 04:39 06/03/17 04:39 06/03/17 06/04/17 06/05/17 05:59 05:59 05:59 Intake Total 1866 3342 Output Total 0 100 Balance 1866 3242 ICD10 Worksheet Patient Problems: Problems Problem Status Onset Acute cholecystitis Acute
[2017-06-04] MEDS: ACETAMINOPHEN 325 MG TAB PO PRN (13:41)
--- NOTE | 2017-06-04 13:58 | GDS ---
[f rep st] DISCHARGE SUMMARY DISCHARGE DIAGNOSES: 1. Acute cholecystitis. 2. Gallstone pancreatitis. 3. Transient choledocholithiasis. 4. Elevated liver function tests due to biliary obstruction. HISTORY: This is a 71-year-old female, who presented with abdominal pain. HOSPITAL COURSE: The patient was noted to have acute cholecystitis, dilated common bile duct without a clear stone, elevated liver function tests. She underwent ERCP the following day with clear ducts , although there was no stone found. Because of her acute pancreatitis, we did wait another day prio r to cholecystectomy. She underwent laparoscopic cholecystectomy without incident. She is eating cu rrently without any worsening epigastric pain and will be discharged home. DISPOSITION: Home. DISCHARGE MEDICATIONS: She will continue home medications. In addition, she will be given Vicodin. FOLLOWUP INSTRUCTIONS: She was instructed to follow up with primary care when she gets back to [facility]. TIME SPENT: Greater than 30 minutes was spent on discharge. /[id number]/MODL
== END 2017-06-04 14:04 | disposition home or self-care (01) | DRG 417 ==
LOC: OBSVTOIN 18:35 → F1N 19:52
PROVIDERS: ADMIT Student in an Organized Health Care Education/Training Program; ATTEND Student in an Organized Health Care Education/Training Program
PROC: BF141ZZ Fluoroscopy of Gallbladder, Bile Ducts and Pancreatic Ducts using Low Osmolar Contrast (ICD-10-PCS; 2017-06-02)
PROC: 0FT44ZZ Resection of Gallbladder, Percutaneous Endoscopic Approach (ICD-10-PCS; principal; 2017-06-03 18:15)
DX: K80.67 Calculus of gallbladder and bile duct with acute and chronic cholecystitis with obstruction (principal); K85.10 Biliary acute pancreatitis without necrosis or infection; K44.9 Diaphragmatic hernia without obstruction or gangrene; K21.9 Gastro-esophageal reflux disease without esophagitis; I10 Essential (primary) hypertension; F41.9 Anxiety disorder, unspecified
CPT/HCPCS: J0171; J0690; J1100; J1170; J1335; J1610; J1885; J2405; J2704; J2765; J3010; Q9961